=== PATIENT | male | born 1955 | race Caucasian/White ===

== ENCOUNTER 2017-12-09 20:24 | Emergency (ER) | payer MEDICAID, OTHER ==
[~2017-12-09] VITALS: Ht 175.3 cm; Wt 68.2 kg
[~2017-12-09 20:24] MED LIST: CITA10TA68 PO; OMEP20 PO; TRAZ-144 PO
[2017-12-09] MEDS ORDERED: MAGNESIUM SULFATE 2 GM, MVI, ADULT NO.1 WITH VIT K 10 ML, THIAMINE HCL 100 MG, FOLIC AC... IV ONE ×5 (20:45)
[2017-12-09 21:17] LABS: BASOPHILS % (AUTO) 0.4 % (0.0-2.0); EOSINOPHILS % (AUTO) 2.4 % (1.0-6.0); HEMATOCRIT 42.8 % (41-53); HEMOGLOBIN 14.4 g/dL (13.5-17.5); LYMPHOCYTES # (AUTO) 0.7 K/uL (1.0-4.8); LYMPHOCYTES % (AUTO) 10.6 % (22.0-44.0); MEAN CORPUSCULAR HEMOGLOBIN 30.8 pg (26.0-34.0); MEAN CORPUSCULAR HGB CONC 33.7 G/dL (31.0-37.0); MEAN CORPUSCULAR VOLUME 91 fL (80-100); MONOCYTES # (AUTO) 0.4 K/uL (0.1-1.0); MONOCYTES % (AUTO) 5.9 % (2.0-9.0); NEUTROPHILS # (AUTO) 5.2 K/uL (1.8-7.7); NEUTROPHILS % (AUTO) 80.7 % (40.0-70.0); PLATELET COUNT (AUTO) 145 K/uL (150-450); RED BLOOD CELL COUNT(AUTO) 4.69 MIL/uL (4.50-5.90); RED CELL DISTRIBUTION WIDTH 14.7 % (11.5-14.5)
[2017-12-09 21:22] LABS: ANION GAP 8 mmol/L (8-16); CARBON DIOXIDE 31 mmol/L (22-29); CHLORIDE 100 mmol/L (98-107); CREATININE 0.77 mg/dL (0.60-1.30); GLOMERULAR FILTR. RATE CALC > 60 mL/min (>60); GLUCOSE,RANDOM 168 mg/dL (70-110); POTASSIUM 3.8 mmol/L (3.5-5.1); SODIUM SERUM 139 mmol/L (136-145); UREA NITROGEN, BLOOD 12 mg/dL (7-18)
[2017-12-09 21:30] LABS: ALANINE AMINOTRANSFERASE 40 U/L (12-78); ALBUMIN 3.6 g/dL (3.4-5.0); ALKALINE PHOSPHATASE 98 U/L (46-116); ASPARTATE AMINOTRANSFERASE 77 U/L (15-37); BILIRUBIN,TOTAL 0.5 mg/dL (0.1-1.0); TOTAL PROTEIN, SERUM 7.2 g/dL (6.4-8.2)
[2017-12-09] MEDS ORDERED: LORazepam 2 MG TABLET PO ONE (21:30)
[2017-12-09 23:50] VITALS: BP 145/83
== END 2017-12-09 23:57 | disposition home or self-care (01) ==
LOC: EMS 20:26
DX: K70.30 Alcoholic cirrhosis of liver without ascites (principal); F10.239 Alcohol dependence with withdrawal, unspecified; F41.9 Anxiety disorder, unspecified; F17.210 Nicotine dependence, cigarettes, uncomplicated; Y90.0 Blood alcohol level of less than 20 mg/100 ml
CPT/HCPCS: 36415; 80053; 84484; 85025; 99284; 99406; G0480; J3411; J3475; J3490; J7030

== ENCOUNTER 2020-01-01 22:33 | Inpatient (IN) | payer MEDICARE, OTHER ==
[~2020-01-01] VITALS: Ht 182.9 cm; Wt 63.5 kg
[2020-01-01] MEDS ORDERED: DEXTROSE 5%-WATER 250 ML IV ONE (22:51)
[2020-01-01] MEDS ORDERED: DEXTROSE 50%-WATER 25 GM/50 ML SYRINGE IVP ONE ×2 (22:53→23:00)
[2020-01-01] MEDS ORDERED: SODIUM CHLORIDE 0.9% 1,000 ML IV ONE (23:00)
[2020-01-01 23:58] LABS: BASOPHILS % (AUTO) 0.5 % (0.0-2.0); EOSINOPHILS % (AUTO) 12.7 % (1.0-6.0); HEMATOCRIT 47.6 % (41-53); HEMOGLOBIN 14.7 g/dL (13.5-17.5); LYMPHOCYTES # (AUTO) 0.4 K/uL (1.0-4.8); LYMPHOCYTES % (AUTO) 7.5 % (22.0-44.0); MEAN CORPUSCULAR HGB CONC 30.8 G/dL (31.0-37.0); MEAN CORPUSCULAR VOLUME 94 fL (80-100); MONOCYTES # (AUTO) 0.6 K/uL (0.1-1.0); MONOCYTES % (AUTO) 9.9 % (2.0-9.0); NEUTROPHILS # (AUTO) 4.1 K/uL (1.8-7.7); NEUTROPHILS % (AUTO) 69.4 % (40.0-70.0); PLATELET COUNT (AUTO) 203 K/uL (150-450); RED BLOOD CELL COUNT(AUTO) 5.06 MIL/uL (4.50-5.90); RED CELL DISTRIBUTION WIDTH 14.9 % (11.5-14.5)
[2020-01-02] MEDS ORDERED: ZOLPIDEM TARTRATE 5 MG TABLET PO PRN
[2020-01-02] MEDS ORDERED: ACETAMINOPHEN 325 MG TABLET PO PRN
[2020-01-02] MEDS ORDERED: HYDROCODONE/ACETAMINOPHEN 5-325 MG TABLET PO PRN
[2020-01-02] MEDS ORDERED: MAGNESIUM HYDROXIDE SUSPENSION 30 ML UDCUP PO PRN
[2020-01-02] MEDS ORDERED: ONDANSETRON HCL 4 MG/2 ML VIAL IVP PRN
[2020-01-02] MEDS ORDERED: BISACODYL 10 MG RECTAL RECTAL SUPPOSITORY PR PRN
[2020-01-02] MEDS ORDERED: MORPHINE SULFATE 2 MG/ML SYRINGE IVP PRN
[2020-01-02 00:06] LABS: ANION GAP 0 mmol/L (8-16); CARBON DIOXIDE 35 mmol/L (22-29); CHLORIDE 102 mmol/L (98-107); GLOMERULAR FILTR. RATE CALC > 60 mL/min (>60); GLUCOSE,RANDOM 162 mg/dL (70-110); POTASSIUM 4.7 mmol/L (3.5-5.1); SODIUM SERUM 137 mmol/L (136-145); UREA NITROGEN, BLOOD 19 mg/dL (7-18)
[2020-01-02 00:09] LABS: INR 1.3 (0.9-1.1); PROTHROMBIN TIME 12.8 SEC (9.4-11.6)
[2020-01-02 00:12] LABS: ALANINE AMINOTRANSFERASE 57 U/L (12-78); ALBUMIN 2.9 g/dL (3.4-5.0); ALKALINE PHOSPHATASE 104 U/L (46-116); ASPARTATE AMINOTRANSFERASE 73 U/L (15-37); BILIRUBIN,TOTAL 0.4 mg/dL (0.1-1.0); TOTAL PROTEIN, SERUM 6.6 g/dL (6.4-8.2)
[2020-01-02 00:14] LABS: LACTIC ACID 1.1 mmol/L (0.4-2.0)
[2020-01-02 00:14] LABS: APPEARANCE,URINE CLEAR (CLEAR); BILIRUBIN,URINE PRELIM. POSITIVE (NEGATIVE); GLUCOSE, URINE (UA) NEGATIVE (NEGATIVE); KETONES,URINE NEGATIVE (NEGATIVE); LEUKOCYTE ESTERASE ,URINE NEGATIVE (NEGATIVE); NITRATE,URINE NEGATIVE (NEGATIVE); OCCULT BLOOD,URINE NEGATIVE (NEGATIVE); PH,URINE 5.5 (5.0-8.0); PROTEIN,URINE NEGATIVE (NEGATIVE)
[2020-01-02 00:16] LABS: AMMONIA 39 umol/L (11-32); TROPONIN I < 0.02 ng/mL (0.00-0.05)
[2020-01-02 00:20] LABS: B-TYPE NATRIURETIC PEPTIDE 378 pg/mL (0-100)
[2020-01-02 00:20] LABS: AMPHET/METH SCREEN,URINE POSITIVE (NEGATIVE); BARBITURATE SCREEN, URINE NEGATIVE (NEGATIVE); BENZODIAZEPINES SCREEN,URINE NEGATIVE (NEGATIVE); CANNABINOID SCREEN,URINE NEGATIVE (NEGATIVE); COCAINE SCREEN,URINE NEGATIVE (NEGATIVE); METHADONE SCREEN, URINE NEGATIVE (NEGATIVE); OPIATE SCREEN,URINE NEGATIVE (NEGATIVE); PHENCYCLIDINE SCREEN,URINE NEGATIVE (NEGATIVE)
[2020-01-02 00:22] LABS: ACETONE,BLOOD NEGATIVE (NEGATIVE)
[2020-01-02 00:26] LABS: BACTERIA,URINE None Seen /HPF (None Seen); RBC,URINE 0-2 /HPF (0-2); SQUAMOUS EPITHELIAL CELL,UR Few /LPF (None Seen)
[2020-01-02] MEDS ORDERED: LORazepam 2 MG/ML VIAL ONE (01:18)
[2020-01-02] MEDS ORDERED: LORazepam 2 MG/ML VIAL IVP ONE (01:30)
[2020-01-02] MEDS ORDERED: DEXTROSE 5%-0.45% SODIUM CHL 1,000 ML IV ONE (01:45)
[2020-01-02 01:51] LABS: GLUCOSE,POINT OF CARE 121 MG/DL (70-110)
[2020-01-02 01:51] LABS: GLUCOSE,POINT OF CARE 158 MG/DL (70-110)
[2020-01-02] MEDS ORDERED: AZITHROMYCIN 500 MG/NS 250 ML IV ONE (03:45)
[2020-01-02] MEDS: CefTRIAXone 1 GM/DEXTROSE 50 ML IV ONE ×2 (04:15→04:51)
[2020-01-02] MEDS ORDERED: VANCOMYCIN HCL 1 GM/D5% WATER 200 ML IV ONE (06:00)
[2020-01-02] MEDS: SODIUM CHLORIDE 0.9% 1,000 ML IV ONE ×2 (06:09→07:15)
[2020-01-02 06:21] LABS: GLUCOSE,POINT OF CARE 144 MG/DL (70-110)
[2020-01-02] MEDS ORDERED: SODIUM CHLORIDE 0.9% 500 ML IV ONE (07:15)
[2020-01-02] MEDS: DOPamine HCL 400 MG/D5%-WATER 250 ML IV PRN ×2 (07:34→22:12)
[2020-01-02 07:57] LABS: GLUCOSE,POINT OF CARE 204 MG/DL (70-110)
[2020-01-02] MEDS: PANTOPRAZOLE SODIUM 40 MG DR TABLET PO SCH (09:00)
[2020-01-02] MEDS: DOCUSATE SODIUM 100 MG CAPSULE PO SCH ×2 (09:00→22:51)
[2020-01-02 09:12] LABS: BASOPHILS % (AUTO) 0.5 % (0.0-2.0); EOSINOPHILS % (AUTO) 8.7 % (1.0-6.0); HEMATOCRIT 47.1 % (41-53); HEMOGLOBIN 14.4 g/dL (13.5-17.5); LYMPHOCYTES # (AUTO) 0.9 K/uL (1.0-4.8); LYMPHOCYTES % (AUTO) 10.5 % (22.0-44.0); MEAN CORPUSCULAR HEMOGLOBIN 29.3 pg (26.0-34.0); MEAN CORPUSCULAR HGB CONC 30.5 G/dL (31.0-37.0); MEAN CORPUSCULAR VOLUME 96 fL (80-100); MONOCYTES % (AUTO) 12.1 % (2.0-9.0); NEUTROPHILS # (AUTO) 5.6 K/uL (1.8-7.7); NEUTROPHILS % (AUTO) 68.2 % (40.0-70.0); PLATELET COUNT (AUTO) 196 K/uL (150-450); RED BLOOD CELL COUNT(AUTO) 4.91 MIL/uL (4.50-5.90); RED CELL DISTRIBUTION WIDTH 15.3 % (11.5-14.5)
[2020-01-02 09:16] LABS: ANION GAP -1 mmol/L (8-16); CALCIUM, TOTAL 8.2 mg/dL (8.8-10.5); CARBON DIOXIDE 37 mmol/L (22-29); CHLORIDE 102 mmol/L (98-107); CREATININE 0.74 mg/dL (0.60-1.30); GLOMERULAR FILTR. RATE CALC > 60 mL/min (>60); GLUCOSE,RANDOM 225 mg/dL (70-110); POTASSIUM 4.4 mmol/L (3.5-5.1); SODIUM SERUM 138 mmol/L (136-145); UREA NITROGEN, BLOOD 17 mg/dL (7-18)
[2020-01-02 09:31] LABS: THYROID STIMULATING HORMONE 2.39 uIU/mL (0.36-3.74)
[2020-01-02] MEDS ORDERED: NALOXONE HCL 0.4 MG/ML VIAL IM ONE (10:45)
[2020-01-02 11:24] LABS: CREATINE KINASE, TOTAL ONLY 389 U/L (39-308)
[2020-01-02 12:03] LABS: GLUCOSE,POINT OF CARE 93 MG/DL (70-110)
[2020-01-02] MEDS ORDERED: DEXTROSE 50%-WATER 25 GM/50 ML SYRINGE IVP STA (13:19)
[2020-01-02] MEDS ORDERED: DEXTROSE 50%-WATER 25 GM/50 ML SYRINGE IVP ONE (13:29)
[2020-01-02] MEDS ORDERED: SODIUM CHLORIDE 0.45% 1,000 ML IV SCH (13:30)
[2020-01-02 13:36] LABS: GLUCOSE,POINT OF CARE 56 MG/DL (70-110)
[2020-01-02] MEDS: SODIUM CHLORIDE 77 MEQ in DEXTROSE 10%-WATER 1,000 ML IV SCH (14:33)
[2020-01-02 14:42] LABS: GLUCOSE,POINT OF CARE 94 MG/DL (70-110)
[2020-01-02] MEDS ORDERED: PROPOFOL 1000 MG/ISO-OSM 100 ML IV ONE (16:31)
[2020-01-02] MEDS ORDERED: RAPID SEQUENCE KIT [RSI] 1 EACH KIT ONE (16:31)
[2020-01-02] MEDS ORDERED: ROCURONIUM BROMIDE 10 MG/ML 5 ML VIAL ONE (16:32)
[2020-01-02] MEDS: PROPOFOL 1000 MG/ISO-OSM 100 ML IV PRN ×2 (17:12→22:12)
[2020-01-02 17:45] LABS: ABG A-A DIFF O2 483.4 mmHg (10-20.0); ABG BASE EXCESS 3.1 mmol/L (-2.0-3.0); ABG CARBOXYHEMOGLOBIN 1.9 % (0.0-1.5); ABG HCO3 25.1 mmol/L (22.0-26.0); ABG METHEMOGLOBIN 0.1 % (0.0-1.5); ABG OXYGEN CONTENT 20.3 mL/dL (15.0-23.0); ABG OXYGEN SATURATION 99.5 % (95.0-98.0); ABG OXYHEMOGLOBIN 97.5 % (94.0-100.0); ABG PH 7.228 (7.35-7.450); ABG TOTAL HEMOGLOBIN 14.6 G/dL (12.0-18.0); PO2, ARTERIAL BG 156.9 mmHg (79.0-87.0); SOURCE, BLOOD GAS ARTERIAL; TEMPERATURE, FAHRENHEIT, BG 96.9 FAHREN (96.0-98.6)
[2020-01-02 18:13] LABS: ABG PCO2 75 mmHg (35-45); SITE, BLOOD GAS AC
[2020-01-02 18:14] LABS: O2 DEVICE,BLOOD GAS VENTILATOR (ROOM AIR); PEEP,BG 5 cm H2O; SPONTANEOUS VT, BG 556 ml; VT, ABG 500 ml
[2020-01-02 18:42] LABS: GLUCOSE,POINT OF CARE 75 MG/DL (70-110)
[2020-01-02 21:30] VITALS: BP 80/55
[2020-01-02] MEDS ORDERED: SODIUM CHLORIDE 0.9% 1,000 ML ONE (22:50)
[2020-01-03] VITALS: BP 111/74
[2020-01-03 01:40] LABS: GLUCOSE,POINT OF CARE 74 MG/DL (70-110)
[2020-01-03] MEDS: PROPOFOL 1000 MG/ISO-OSM 100 ML IV PRN ×2 (01:50→21:54)
[2020-01-03 04:00] VITALS: BP 115/66
[2020-01-03 06:19] LABS: BASOPHILS % (AUTO) 0.1 % (0.0-2.0); EOSINOPHILS % (AUTO) 3.3 % (1.0-6.0); HEMATOCRIT 46.4 % (41-53); HEMOGLOBIN 14.5 g/dL (13.5-17.5); LYMPHOCYTES # (AUTO) 0.4 K/uL (1.0-4.8); LYMPHOCYTES % (AUTO) 3.2 % (22.0-44.0); MEAN CORPUSCULAR HEMOGLOBIN 29.2 pg (26.0-34.0); MEAN CORPUSCULAR HGB CONC 31.4 G/dL (31.0-37.0); MEAN CORPUSCULAR VOLUME 93 fL (80-100); MONOCYTES # (AUTO) 0.7 K/uL (0.1-1.0); MONOCYTES % (AUTO) 5.7 % (2.0-9.0); NEUTROPHILS # (AUTO) 11.6 K/uL (1.8-7.7); RED BLOOD CELL COUNT(AUTO) 4.97 MIL/uL (4.50-5.90); RED CELL DISTRIBUTION WIDTH 14.9 % (11.5-14.5)
[2020-01-03 06:50] LABS: NEUTROPHILS % (AUTO) 87.7 % (40.0-70.0); PLATELET COUNT (AUTO) 190 K/uL (150-450)
[2020-01-03 06:55] LABS: ANION GAP 3 mmol/L (8-16); CARBON DIOXIDE 34 mmol/L (22-29); CHLORIDE 103 mmol/L (98-107); CREATINE KINASE, TOTAL ONLY 132 U/L (39-308); CREATININE 0.72 mg/dL (0.60-1.30); GLOMERULAR FILTR. RATE CALC > 60 mL/min (>60); GLUCOSE,RANDOM 66 mg/dL (70-110); PHOSPHORUS 1.9 mg/dL (2.5-4.9); SODIUM SERUM 140 mmol/L (136-145); UREA NITROGEN, BLOOD 14 mg/dL (7-18)
[2020-01-03 07:11] LABS: B-TYPE NATRIURETIC PEPTIDE 156 pg/mL (0-100)
[2020-01-03 08:00] VITALS: BP 117/69
[2020-01-03 08:10] LABS: GLUCOSE,POINT OF CARE 69 MG/DL (70-110)
[2020-01-03 08:10] LABS: GLUCOSE,POINT OF CARE 95 MG/DL (70-110)
[2020-01-03] MEDS ORDERED: SODIUM PHOS,M-BASIC-D-BASIC 10 MMOL in DEXTROSE 5%-WATER 100 ML IV ONE (09:45)
[2020-01-03] MEDS: PANTOPRAZOLE SODIUM 40 MG DR TABLET PO SCH (09:50)
[2020-01-03] MEDS: DOCUSATE SODIUM 100 MG CAPSULE PO SCH ×2 (09:51→21:54)
[2020-01-03 10:48] LABS: ABG A-A DIFF O2 115.1 mmHg (10-20.0); ABG BASE EXCESS 5.6 mmol/L (-2.0-3.0); ABG CARBOXYHEMOGLOBIN 1.1 % (0.0-1.5); ABG HCO3 28.7 mmol/L (22.0-26.0); ABG METHEMOGLOBIN 0.3 % (0.0-1.5); ABG OXYGEN CONTENT 20.3 mL/dL (15.0-23.0); ABG OXYHEMOGLOBIN 95.6 % (94.0-100.0); ABG PCO2 46 mmHg (35-45); ABG PH 7.429 (7.35-7.450); ABG TOTAL HEMOGLOBIN 15.1 G/dL (12.0-18.0); PO2, ARTERIAL BG 80.7 mmHg (79.0-87.0); SOURCE, BLOOD GAS ARTERIAL; TEMPERATURE, FAHRENHEIT, BG 98.6 FAHREN (96.0-98.6)
[2020-01-03 10:49] LABS: O2 DEVICE,BLOOD GAS VENTILATOR (ROOM AIR); SITE, BLOOD GAS RT RADIAL; VT, ABG 500 ml
[2020-01-03 10:50] LABS: PEEP,BG 5 cm H2O
[2020-01-03 12:00] VITALS: BP 114/71
[2020-01-03] MEDS ORDERED: MVI, ADULT NO.1 WITH VIT K 10 ML in DEXTROSE 5%-0.9% SODIUM CHL 1,000 ML IV ONE ×2 (14:15)
[2020-01-03] MEDS: SODIUM CHLORIDE 77 MEQ in DEXTROSE 10%-WATER 1,000 ML IV SCH (15:43)
[2020-01-03 16:00] VITALS: BP 109/72
[2020-01-03] MEDS: NOREPINEPHRINE 4 MG/D5%-WATER 250 ML IV PRN (17:58)
[2020-01-03 18:57] LABS: GLUCOSE,POINT OF CARE 77 MG/DL (70-110)
[2020-01-03 18:57] LABS: GLUCOSE,POINT OF CARE 108 MG/DL (70-110)
[2020-01-03 20:00] VITALS: BP 96/62
[2020-01-03 22:09] LABS: CREATININE,URINE RANDOM 84.4 mg/dL (30.0-125.0)
[2020-01-04] VITALS: BP 107/64
[2020-01-04] MEDS: NOREPINEPHRINE 4 MG/D5%-WATER 250 ML IV PRN ×3 (01:18→20:43)
[2020-01-04] MEDS ORDERED: PERMETHRIN 5% 60 GM CREAM TP ONE (02:45)
[2020-01-04] MEDS: PROPOFOL 1000 MG/ISO-OSM 100 ML IV PRN ×2 (03:12→10:41)
[2020-01-04 04:00] VITALS: BP 105/70
[2020-01-04 06:24] LABS: BASOPHILS % (AUTO) 0.1 % (0.0-2.0); EOSINOPHILS % (AUTO) 2.8 % (1.0-6.0); HEMATOCRIT 44.4 % (41-53); HEMOGLOBIN 14.2 g/dL (13.5-17.5); LYMPHOCYTES # (AUTO) 0.4 K/uL (1.0-4.8); LYMPHOCYTES % (AUTO) 3.2 % (22.0-44.0); MEAN CORPUSCULAR HEMOGLOBIN 29.1 pg (26.0-34.0); MEAN CORPUSCULAR VOLUME 91 fL (80-100); MONOCYTES # (AUTO) 0.9 K/uL (0.1-1.0); MONOCYTES % (AUTO) 6.5 % (2.0-9.0); NEUTROPHILS # (AUTO) 12.2 K/uL (1.8-7.7); RED BLOOD CELL COUNT(AUTO) 4.88 MIL/uL (4.50-5.90)
[2020-01-04 06:37] LABS: ANION GAP 3 mmol/L (8-16); CALCIUM, TOTAL 7.6 mg/dL (8.8-10.5); CARBON DIOXIDE 32 mmol/L (22-29); CHLORIDE 104 mmol/L (98-107); CREATININE 0.76 mg/dL (0.60-1.30); GLOMERULAR FILTR. RATE CALC > 60 mL/min (>60); GLUCOSE,RANDOM 131 mg/dL (70-110); PHOSPHORUS 2.7 mg/dL (2.5-4.9); POTASSIUM 3.6 mmol/L (3.5-5.1); SODIUM SERUM 139 mmol/L (136-145); UREA NITROGEN, BLOOD 10 mg/dL (7-18)
[2020-01-04 06:45] LABS: NEUTROPHILS % (AUTO) 87.4 % (40.0-70.0)
[2020-01-04 07:07] LABS: PLATELET COUNT (AUTO) 154 K/uL (150-450)
[2020-01-04 08:00] VITALS: BP 130/79
[2020-01-04 08:46] LABS: GLUCOSE,POINT OF CARE 138 MG/DL (70-110)
[2020-01-04] MEDS: DOCUSATE SODIUM 100 MG CAPSULE PO SCH ×2 (08:52→20:25)
[2020-01-04] MEDS: PANTOPRAZOLE SODIUM 40 MG DR TABLET PO SCH (08:52)
[2020-01-04 09:00] LABS: ABG METHEMOGLOBIN 0.3 % (0.0-1.5); SOURCE, BLOOD GAS ARTERIAL; TEMPERATURE, FAHRENHEIT, BG 98.6 FAHREN (96.0-98.6)
[2020-01-04 09:05] LABS: ABG A-A DIFF O2 118.9 mmHg (10-20.0); ABG BASE EXCESS 4.4 mmol/L (-2.0-3.0); ABG CARBOXYHEMOGLOBIN 0.8 % (0.0-1.5); ABG HCO3 28.2 mmol/L (22.0-26.0); ABG OXYGEN CONTENT 18.7 mL/dL (15.0-23.0); ABG OXYGEN SATURATION 97.1 % (95.0-98.0); ABG PCO2 39 mmHg (35-45); ABG PH 7.474 (7.35-7.450); ABG TOTAL HEMOGLOBIN 13.8 G/dL (12.0-18.0); PO2, ARTERIAL BG 85.3 mmHg (79.0-87.0)
[2020-01-04 09:07] LABS: SITE, BLOOD GAS RT RADIAL
[2020-01-04 09:08] LABS: O2 DEVICE,BLOOD GAS VENTILATOR (ROOM AIR); PEEP,BG 5 cm H2O; VT, ABG 500 ml
[2020-01-04] MEDS ORDERED: SODIUM CHLORIDE 0.9% 1,000 ML ONE (10:43)
[2020-01-04 11:58] LABS: GLUCOSE,POINT OF CARE 116 MG/DL (70-110)
[2020-01-04 12:00] VITALS: BP 97/64
[2020-01-04] MEDS ORDERED: MAGNESIUM SULFATE 2 GM, MVI, ADULT NO.1 WITH VIT K 10 ML, THIAMINE HCL 100 MG, FOLIC AC... IV SCH ×5 (15:15)
[2020-01-04] MEDS ORDERED: MVI, ADULT NO.1 WITH VIT K 10 ML in DEXTROSE 5%-0.9% SODIUM CHL 1,000 ML IV ONE ×2 (15:45)
[2020-01-04 16:00] VITALS: BP 123/76
[2020-01-04 17:40] LABS: GLUCOSE,POINT OF CARE 98 MG/DL (70-110)
[2020-01-04 20:00] VITALS: BP 152/88
[2020-01-05] VITALS: BP 119/71
[2020-01-05] MEDS: PROPOFOL 1000 MG/ISO-OSM 100 ML IV PRN (02:30)
[2020-01-05 04:00] VITALS: BP 118/70
[2020-01-05 06:01] LABS: ANION GAP 2 mmol/L (8-16); CALCIUM, TOTAL 7.8 mg/dL (8.8-10.5); CARBON DIOXIDE 33 mmol/L (22-29); CHLORIDE 108 mmol/L (98-107); CREATININE 0.69 mg/dL (0.60-1.30); GLOMERULAR FILTR. RATE CALC > 60 mL/min (>60); GLUCOSE,RANDOM 90 mg/dL (70-110); POTASSIUM 3.1 mmol/L (3.5-5.1); SODIUM SERUM 143 mmol/L (136-145); UREA NITROGEN, BLOOD 7 mg/dL (7-18)
[2020-01-05 06:08] LABS: BASOPHILS % (AUTO) 0.2 % (0.0-2.0); EOSINOPHILS % (AUTO) 11.8 % (1.0-6.0); HEMATOCRIT 40.7 % (41-53); HEMOGLOBIN 12.9 g/dL (13.5-17.5); LYMPHOCYTES # (AUTO) 0.7 K/uL (1.0-4.8); LYMPHOCYTES % (AUTO) 9.1 % (22.0-44.0); MEAN CORPUSCULAR HEMOGLOBIN 28.8 pg (26.0-34.0); MEAN CORPUSCULAR HGB CONC 31.8 G/dL (31.0-37.0); MEAN CORPUSCULAR VOLUME 90 fL (80-100); MONOCYTES # (AUTO) 0.8 K/uL (0.1-1.0); MONOCYTES % (AUTO) 10.6 % (2.0-9.0); NEUTROPHILS # (AUTO) 5.4 K/uL (1.8-7.7); NEUTROPHILS % (AUTO) 68.3 % (40.0-70.0); PLATELET COUNT (AUTO) 127 K/uL (150-450); RED BLOOD CELL COUNT(AUTO) 4.49 MIL/uL (4.50-5.90); RED CELL DISTRIBUTION WIDTH 14.9 % (11.5-14.5)
[2020-01-05 07:04] LABS: GLUCOSE,POINT OF CARE 110 MG/DL (70-110)
[2020-01-05 07:04] LABS: GLUCOSE,POINT OF CARE 86 MG/DL (70-110)
[2020-01-05 07:27] LABS: PLATELET MORPHOLOGY COMMENT GIANT PLTS PRESENT
[2020-01-05] MEDS ORDERED: POTASSIUM CHLORIDE 20 MEQ ER TABLET PO ONE (07:30)
[2020-01-05] MEDS: POTASSIUM CHL 10 MEQ/WATER 50 ML IV SCH ×2 (07:53→09:30)
[2020-01-05 08:00] VITALS: BP 123/81
[2020-01-05 08:06] LABS: PHOSPHORUS 2.9 mg/dL (2.5-4.9)
[2020-01-05 08:25] LABS: GLUCOSE,POINT OF CARE 93 MG/DL (70-110)
[2020-01-05] MEDS: DOCUSATE SODIUM 100 MG CAPSULE PO SCH ×2 (09:03→21:57)
[2020-01-05] MEDS: PANTOPRAZOLE SODIUM 40 MG DR TABLET PO SCH (09:04)
[2020-01-05] MEDS: SODIUM CHLORIDE 77 MEQ in DEXTROSE 10%-WATER 1,000 ML IV SCH ×2 (09:06→14:10)
[2020-01-05 11:34] LABS: ABG A-A DIFF O2 75.9 mmHg (10-20.0); ABG BASE EXCESS 4.1 mmol/L (-2.0-3.0); ABG CARBOXYHEMOGLOBIN 0.7 % (0.0-1.5); ABG HCO3 26.8 mmol/L (22.0-26.0); ABG METHEMOGLOBIN 0.3 % (0.0-1.5); ABG OXYGEN CONTENT 18.9 mL/dL (15.0-23.0); ABG OXYGEN SATURATION 97.6 % (95.0-98.0); ABG OXYHEMOGLOBIN 96.6 % (94.0-100.0); ABG PCO2 60 mmHg (35-45); ABG TOTAL HEMOGLOBIN 13.8 G/dL (12.0-18.0); O2 DEVICE,BLOOD GAS VENTILATOR (ROOM AIR); PO2, ARTERIAL BG 103.9 mmHg (79.0-87.0); SITE, BLOOD GAS RT RADIAL; SOURCE, BLOOD GAS ARTERIAL; TEMPERATURE, FAHRENHEIT, BG 98.6 FAHREN (96.0-98.6); VENT MODE, BG SPONTANEOUS (ROOM AIR)
[2020-01-05 11:35] LABS: CPAP, BG 0 cm H2O; PEEP,BG 0 cm H2O; PRESSURE SUPPORT, BG 8 cm H2O; SPONTANEOUS VT, BG 485 ml
[2020-01-05 12:00] VITALS: BP 127/70
[2020-01-05 13:33] LABS: GLUCOSE,POINT OF CARE 71 MG/DL (70-110)
[2020-01-05] MEDS ORDERED: MAGNESIUM SULFATE 3 GM in DEXTROSE 5%-WATER 100 ML IV ONE (14:00)
[2020-01-05 16:00] VITALS: BP 106/56
[2020-01-05] MEDS ORDERED: MVI, ADULT NO.1 WITH VIT K 10 ML in DEXTROSE 5%-0.9% SODIUM CHL 1,000 ML IV ONE ×2 (18:00)
[2020-01-05] MEDS ORDERED: DEXTROSE 50%-WATER 25 GM/50 ML SYRINGE IVP ONE (18:09)
[2020-01-05 20:00] VITALS: BP 102/66
[2020-01-05 20:51] LABS: GLUCOSE,POINT OF CARE 69 MG/DL (70-110)
[2020-01-05 20:51] LABS: GLUCOSE,POINT OF CARE 174 MG/DL (70-110)
[2020-01-05] MEDS ORDERED: SODIUM CHLORIDE 0.9% 250 ML IV ONE (21:01)
[2020-01-05] MEDS: PIPERACILLIN/TAZO 3.375 GM/D5W 50 ML IV SCH (21:05)
[2020-01-06] VITALS (7 sets, daily range): BP systolic 104–144; BP diastolic 63–73
[2020-01-06] MEDS: PROPOFOL 1000 MG/ISO-OSM 100 ML IV PRN ×2 (01:20→15:02)
[2020-01-06] MEDS: PIPERACILLIN/TAZO 3.375 GM/D5W 50 ML IV SCH ×4 (03:00→20:18)
[2020-01-06 05:26] LABS: GLUCOSE,POINT OF CARE 81 MG/DL (70-110)
[2020-01-06 05:26] LABS: GLUCOSE,POINT OF CARE 74 MG/DL (70-110)
[2020-01-06 05:52] LABS: BASOPHILS % (AUTO) 0.6 % (0.0-2.0); HEMATOCRIT 41.6 % (41-53); HEMOGLOBIN 13.3 g/dL (13.5-17.5); LYMPHOCYTES # (AUTO) 0.8 K/uL (1.0-4.8); LYMPHOCYTES % (AUTO) 12.5 % (22.0-44.0); MEAN CORPUSCULAR HEMOGLOBIN 29.1 pg (26.0-34.0); MEAN CORPUSCULAR HGB CONC 32.1 G/dL (31.0-37.0); MEAN CORPUSCULAR VOLUME 91 fL (80-100); MONOCYTES # (AUTO) 0.7 K/uL (0.1-1.0); NEUTROPHILS % (AUTO) 58.4 % (40.0-70.0); PLATELET COUNT (AUTO) 114 K/uL (150-450); RED BLOOD CELL COUNT(AUTO) 4.59 MIL/uL (4.50-5.90); RED CELL DISTRIBUTION WIDTH 14.5 % (11.5-14.5)
[2020-01-06 05:54] LABS: EOSINOPHILS % (AUTO) 18.5 % (1.0-6.0)
[2020-01-06 06:12] LABS: ANION GAP 5 mmol/L (8-16); CALCIUM, TOTAL 7.9 mg/dL (8.8-10.5); CARBON DIOXIDE 30 mmol/L (22-29); CHLORIDE 108 mmol/L (98-107); CREATININE 0.85 mg/dL (0.60-1.30); GLOMERULAR FILTR. RATE CALC > 60 mL/min (>60); GLUCOSE,RANDOM 75 mg/dL (70-110); PHOSPHORUS 2.9 mg/dL (2.5-4.9); POTASSIUM 3.4 mmol/L (3.5-5.1); SODIUM SERUM 143 mmol/L (136-145); UREA NITROGEN, BLOOD 9 mg/dL (7-18)
[2020-01-06 07:34] LABS: PLATELET MORPHOLOGY COMMENT GIANT PLTS PRESENT
[2020-01-06] MEDS ORDERED: DEXMEDETOMIDINE HCL 200 MCG in SODIUM CHLORIDE 0.9% 48 ML IV PRN ×2 (07:39→08:00)
[2020-01-06 07:57] LABS: GLUCOSE,POINT OF CARE 79 MG/DL (70-110)
[2020-01-06] MEDS: DOCUSATE SODIUM 100 MG CAPSULE PO SCH ×2 (08:40→20:18)
[2020-01-06] MEDS: PANTOPRAZOLE SODIUM 40 MG DR TABLET PO SCH (08:41)
[2020-01-06 09:17] LABS: ABG A-A DIFF O2 137.2 mmHg (10-20.0); ABG BASE EXCESS 2.1 mmol/L (-2.0-3.0); ABG CARBOXYHEMOGLOBIN 0.9 % (0.0-1.5); ABG HCO3 26.8 mmol/L (22.0-26.0); ABG METHEMOGLOBIN 0.3 % (0.0-1.5); ABG OXYGEN CONTENT 18.3 mL/dL (15.0-23.0); ABG OXYHEMOGLOBIN 94.8 % (94.0-100.0); ABG PCO2 31 mmHg (35-45); ABG PH 7.519 (7.35-7.450); ABG TOTAL HEMOGLOBIN 13.7 G/dL (12.0-18.0); PO2, ARTERIAL BG 76.1 mmHg (79.0-87.0); SOURCE, BLOOD GAS ARTERIAL; TEMPERATURE, FAHRENHEIT, BG 98.3 FAHREN (96.0-98.6)
[2020-01-06 09:19] LABS: O2 DEVICE,BLOOD GAS VENTILATOR (ROOM AIR); PEEP,BG 5 cm H2O; SITE, BLOOD GAS RT RADIAL; SPONTANEOUS VT, BG 483 ml; VT, ABG 500 ml
[2020-01-06] MEDS ORDERED: MAGNESIUM SULFATE 2 GM in DEXTROSE 5%-WATER 50 ML IV ONE (10:00)
[2020-01-06] MEDS ORDERED: MAGNESIUM SULFATE 2 GM/WATER 50 ML IV ONE (10:15)
[2020-01-06] MEDS: POTASSIUM CHL 10 MEQ/WATER 50 ML IV SCH ×2 (10:50→12:50)
[2020-01-06 11:47] LABS: GLUCOSE,POINT OF CARE 92 MG/DL (70-110)
[2020-01-06] MEDS ORDERED: POTASSIUM CHL 10 MEQ/WATER 50 ML IV PRN (12:15)
[2020-01-06] MEDS ORDERED: POTASSIUM CHLORIDE 20 MEQ ER TABLET PO PRN (12:15)
[2020-01-06] MEDS ORDERED: LORazepam 2 MG/ML VIAL IVP PRN (13:30)
[2020-01-06] MEDS ORDERED: SCOPOLAMINE HYDROBROMIDE 1 MG/72 HOUR PATCH TD SCH (14:00)
[2020-01-06] MEDS ORDERED: MVI, ADULT NO.1 WITH VIT K 10 ML in DEXTROSE 5%-0.9% SODIUM CHL 1,000 ML IV ONE ×2 (14:30)
[2020-01-06] MEDS: SODIUM CHLORIDE 77 MEQ in DEXTROSE 10%-WATER 1,000 ML IV SCH (15:00)
[2020-01-06 19:16] LABS: GLUCOSE,POINT OF CARE 103 MG/DL (70-110)
[2020-01-07] VITALS (11 sets, daily range): BP systolic 93–130; BP diastolic 35–80
[2020-01-07] MEDS ORDERED: SODIUM CHLORIDE 0.9% 250 ML IV ONE (01:12)
[2020-01-07] MEDS: PIPERACILLIN/TAZO 3.375 GM/D5W 50 ML IV SCH ×4 (01:17→20:02)
[2020-01-07] MEDS: PROPOFOL 1000 MG/ISO-OSM 100 ML IV PRN (01:17)
[2020-01-07 05:06] LABS: GLUCOSE,POINT OF CARE 79 MG/DL (70-110)
[2020-01-07 05:24] LABS: GLUCOSE,POINT OF CARE 99 MG/DL (70-110)
[2020-01-07 06:15] LABS: ANION GAP 4 mmol/L (8-16); CALCIUM, TOTAL 7.6 mg/dL (8.8-10.5); CARBON DIOXIDE 28 mmol/L (22-29); CHLORIDE 108 mmol/L (98-107); CREATININE 0.85 mg/dL (0.60-1.30); GLOMERULAR FILTR. RATE CALC > 60 mL/min (>60); GLUCOSE,RANDOM 118 mg/dL (70-110); PHOSPHORUS 3.9 mg/dL (2.5-4.9); POTASSIUM 3.6 mmol/L (3.5-5.1); SODIUM SERUM 140 mmol/L (136-145); UREA NITROGEN, BLOOD 10 mg/dL (7-18)
[2020-01-07] MEDS: DOCUSATE SODIUM 100 MG CAPSULE PO SCH ×2 (08:43→20:02)
[2020-01-07] MEDS: PANTOPRAZOLE SODIUM 40 MG DR TABLET PO SCH (08:43)
[2020-01-07 11:58] LABS: ABG A-A DIFF O2 130.4 mmHg (10-20.0); ABG BASE EXCESS 2.3 mmol/L (-2.0-3.0); ABG CARBOXYHEMOGLOBIN 0.9 % (0.0-1.5); ABG HCO3 25.6 mmol/L (22.0-26.0); ABG METHEMOGLOBIN 0.3 % (0.0-1.5); ABG OXYGEN CONTENT 17.7 mL/dL (15.0-23.0); ABG OXYGEN SATURATION 93.4 % (95.0-98.0); ABG OXYHEMOGLOBIN 92.3 % (94.0-100.0); ABG PCO2 49 mmHg (35-45); ABG PH 7.369 (7.35-7.450); ABG TOTAL HEMOGLOBIN 13.6 G/dL (12.0-18.0); O2 DEVICE,BLOOD GAS VENTILATOR (ROOM AIR); PEEP,BG 5 cm H2O; PO2, ARTERIAL BG 64.1 mmHg (79.0-87.0); SITE, BLOOD GAS LFT RADIAL; SOURCE, BLOOD GAS ARTERIAL; TEMPERATURE, FAHRENHEIT, BG 95.5 FAHREN (96.0-98.6); VT, ABG 500 ml
[2020-01-07] MEDS ORDERED: FUROSEMIDE 20 MG/2 ML VIAL IVP ONE (13:00)
[2020-01-07] MEDS: MVI, ADULT NO.1 WITH VIT K 10 ML in DEXTROSE 5%-0.9% SODIUM CHL 1,000 ML IV SCH ×2 (14:07)
[2020-01-07 20:38] LABS: MAGNESIUM 1.8 mg/dL (1.80-2.40); POTASSIUM 3.7 mmol/L (3.5-5.1)
[2020-01-08] VITALS (9 sets, daily range): BP systolic 103–143; BP diastolic 55–75
[2020-01-08 00:35] LABS: GLUCOSE,POINT OF CARE 86 MG/DL (70-110)
[2020-01-08 00:35] LABS: GLUCOSE,POINT OF CARE 91 MG/DL (70-110)
[2020-01-08 00:36] LABS: GLUCOSE,POINT OF CARE 101 MG/DL (70-110)
[2020-01-08] MEDS: PROPOFOL 1000 MG/ISO-OSM 100 ML IV PRN (01:02)
[2020-01-08] MEDS: PIPERACILLIN/TAZO 3.375 GM/D5W 50 ML IV SCH ×4 (01:02→20:27)
[2020-01-08 05:58] LABS: ANION GAP 2 mmol/L (8-16); CARBON DIOXIDE 34 mmol/L (22-29); CHLORIDE 107 mmol/L (98-107); CREATININE 0.85 mg/dL (0.60-1.30); GLOMERULAR FILTR. RATE CALC > 60 mL/min (>60); GLUCOSE,RANDOM 98 mg/dL (70-110); PHOSPHORUS 3.6 mg/dL (2.5-4.9); POTASSIUM 3.6 mmol/L (3.5-5.1); SODIUM SERUM 143 mmol/L (136-145); UREA NITROGEN, BLOOD 9 mg/dL (7-18)
[2020-01-08 06:07] LABS: GLUCOSE,POINT OF CARE 90 MG/DL (70-110)
[2020-01-08] MEDS: PANTOPRAZOLE SODIUM 40 MG DR TABLET PO SCH (08:52)
[2020-01-08] MEDS: DOCUSATE SODIUM 100 MG CAPSULE PO SCH ×2 (08:52→20:27)
[2020-01-08] MEDS: MVI, ADULT NO.1 WITH VIT K 10 ML in DEXTROSE 5%-0.9% SODIUM CHL 1,000 ML IV SCH ×2 (08:53)
[2020-01-08 10:39] LABS: ABG A-A DIFF O2 129.1 mmHg (10-20.0); ABG HCO3 19.3 mmol/L (22.0-26.0); ABG METHEMOGLOBIN 0.3 % (0.0-1.5); ABG OXYGEN CONTENT 18.4 mL/dL (15.0-23.0); ABG OXYGEN SATURATION 94.3 % (95.0-98.0); ABG OXYHEMOGLOBIN 93.1 % (94.0-100.0); ABG PCO2 37 mmHg (35-45); ABG PH 7.325 (7.35-7.450); SOURCE, BLOOD GAS ARTERIAL; TEMPERATURE, FAHRENHEIT, BG 98.6 FAHREN (96.0-98.6)
[2020-01-08 10:40] LABS: O2 DEVICE,BLOOD GAS VENTILATOR (ROOM AIR); SITE, BLOOD GAS RT RADIAL; VENT MODE, BG SPONTANEOUS (ROOM AIR)
[2020-01-08 10:41] LABS: CPAP, BG 0 cm H2O; PEEP,BG 0 cm H2O; PRESSURE SUPPORT, BG 8 cm H2O; SPONTANEOUS VT, BG 524 ml
[2020-01-08 14:56] LABS: GLUCOSE,POINT OF CARE 84 MG/DL (70-110)
[2020-01-08] MEDS ORDERED: DEXTROSE 50%-WATER 25 GM/50 ML SYRINGE IVP ONE ×2 (17:05→17:15)
[2020-01-08] MEDS ORDERED: DEXTROSE 5%-0.45% SODIUM CHL 1,000 ML IV ONE (18:00)
[2020-01-08 20:37] LABS: GLUCOSE,POINT OF CARE 116 MG/DL (70-110)
[2020-01-08 20:37] LABS: GLUCOSE,POINT OF CARE 64 MG/DL (70-110)
[2020-01-09] MEDS: PIPERACILLIN/TAZO 3.375 GM/D5W 50 ML IV SCH ×4 (02:13→20:22)
[2020-01-09 04:09] VITALS: BP 100/64
[2020-01-09] MEDS: MVI, ADULT NO.1 WITH VIT K 10 ML in DEXTROSE 5%-0.9% SODIUM CHL 1,000 ML IV SCH ×2 (06:07)
[2020-01-09 06:58] LABS: GLUCOMETER DEV NAME(LOC) 5N.2; GLUCOSE,POINT OF CARE 90 MG/DL (70-110)
[2020-01-09 06:58] LABS: GLUCOMETER DEV NAME(LOC) 5N.2; GLUCOSE,POINT OF CARE 80 MG/DL (70-110)
[2020-01-09 06:58] LABS: GLUCOMETER DEV NAME(LOC) 5N.2; GLUCOSE,POINT OF CARE 68 MG/DL (70-110)
[2020-01-09 07:36] LABS: ANION GAP 5 mmol/L (8-16); CALCIUM, TOTAL 8.3 mg/dL (8.8-10.5); CARBON DIOXIDE 33 mmol/L (22-29); CHLORIDE 108 mmol/L (98-107); CREATININE 0.72 mg/dL (0.60-1.30); GLOMERULAR FILTR. RATE CALC > 60 mL/min (>60); GLUCOSE,RANDOM 67 mg/dL (70-110); PHOSPHORUS 3.6 mg/dL (2.5-4.9); POTASSIUM 3.5 mmol/L (3.5-5.1); SODIUM SERUM 146 mmol/L (136-145); UREA NITROGEN, BLOOD 7 mg/dL (7-18)
[2020-01-09] MEDS: DOCUSATE SODIUM 100 MG CAPSULE PO SCH ×2 (08:04→20:20)
[2020-01-09] MEDS: PANTOPRAZOLE SODIUM 40 MG DR TABLET PO SCH (08:04)
[2020-01-09 08:05] VITALS: BP 98/56
[2020-01-09] MEDS ORDERED: MAGNESIUM SULFATE 2 GM in DEXTROSE 5%-WATER 50 ML IV ONE (08:45)
[2020-01-09 11:25] VITALS: BP 102/58
[2020-01-09] MEDS: POTASSIUM CHLORIDE 10 MEQ in DEXTROSE 5%-0.45% SODIUM CHL 1,000 ML IV SCH (12:02)
[2020-01-09 16:25] VITALS: BP 93/60
[2020-01-09 19:25] VITALS: BP 98/63
[2020-01-10 00:16] VITALS: BP 124/74
[2020-01-10] MEDS: PIPERACILLIN/TAZO 3.375 GM/D5W 50 ML IV SCH ×2 (02:41→08:38)
[2020-01-10 03:31] VITALS: BP 125/82
[2020-01-10] MEDS: POTASSIUM CHLORIDE 10 MEQ in DEXTROSE 5%-0.45% SODIUM CHL 1,000 ML IV SCH (05:17)
[2020-01-10 08:05] VITALS: BP_SYST 127; BP_SYST 27; BP_DIAS 70
[2020-01-10] MEDS: DOCUSATE SODIUM 100 MG CAPSULE PO SCH (08:39)
[2020-01-10] MEDS: PANTOPRAZOLE SODIUM 40 MG DR TABLET PO SCH (08:39)
[2020-01-10 11:32] VITALS: BP 147/94
[2020-01-10 12:03] LABS: ANION GAP 2 mmol/L (8-16); CARBON DIOXIDE 36 mmol/L (22-29); CHLORIDE 108 mmol/L (98-107); CREATININE 0.87 mg/dL (0.60-1.30); GLOMERULAR FILTR. RATE CALC > 60 mL/min (>60); GLUCOSE,RANDOM 109 mg/dL (70-110); PHOSPHORUS 2.8 mg/dL (2.5-4.9); POTASSIUM 3.4 mmol/L (3.5-5.1); SODIUM SERUM 146 mmol/L (136-145); UREA NITROGEN, BLOOD 9 mg/dL (7-18)
[2020-01-10] MEDS ORDERED: POTASSIUM CHLORIDE 10 MEQ ER TABLET PO ONE (13:00)
[2020-01-10] MEDS ORDERED: DOCU-275 PO (14:54)
[2020-01-10] MEDS ORDERED: PANT40TA25 PO (14:54)
[2020-01-10] MEDS ORDERED: HYDR-4061 PO (14:55)
[2020-01-10 15:42] VITALS: BP 131/74
== END 2020-01-10 18:15 | DRG 870 ==
LOC: EMS 22:33 → 5S 23:30 → 5N 23:31 → ICU 01-02 19:00 → 5S 01-08 19:30
PROVIDERS: ADMIT Internal Medicine; ATTEND Internal Medicine
PROC: 5A1955Z Respiratory Ventilation, Greater than 96 Consecutive Hours (ICD-10-PCS; 2020-01-02)
PROC: 0BH17EZ Insertion of Endotracheal Airway into Trachea, Via Natural or Artificial Opening (ICD-10-PCS; 2020-01-02)
PROC: 05HY33Z Insertion of Infusion Device into Upper Vein, Percutaneous Approach (ICD-10-PCS; principal; 2020-01-07)
PROC: B54NZZA Ultrasonography of Left Upper Extremity Veins, Guidance (ICD-10-PCS; 2020-01-07)
DX: A41.9 Sepsis, unspecified organism (principal); R65.21 Severe sepsis with septic shock; G92 Toxic encephalopathy; J96.02 Acute respiratory failure with hypercapnia; E43 Unspecified severe protein-calorie malnutrition; J18.9 Pneumonia, unspecified organism; M62.82 Rhabdomyolysis; Z68.1 Body mass index [BMI] 19.9 or less, adult; J44.1 Chronic obstructive pulmonary disease with (acute) exacerbation; J44.0 Chronic obstructive pulmonary disease with (acute) lower respiratory infection; E87.3 Alkalosis; R34 Anuria and oliguria; F17.200 Nicotine dependence, unspecified, uncomplicated; F15.10 Other stimulant abuse, uncomplicated; R68.0 Hypothermia, not associated with low environmental temperature; I10 Essential (primary) hypertension; K21.9 Gastro-esophageal reflux disease without esophagitis; E87.6 Hypokalemia; E83.42 Hypomagnesemia; E16.2 Hypoglycemia, unspecified; F10.10 Alcohol abuse, uncomplicated; Y90.9 Presence of alcohol in blood, level not specified; Z20.828 Contact with and (suspected) exposure to other viral communicable diseases
CPT/HCPCS: 36245; 36569; 36600; 51702; 70450; 76770; 76937; 82533; 82570; 82805; 83605; 83735; 84100; 84132; 84156; 84300; 84443; 87040; 87070; 87081; 87205; 87635; 92526; 92610; 93005; 93306; 94002; 94003; 96374; 97116; 97162; 97166; 97530; 97535; G0378; G0480; J0456; J0696; J1265; J1940; J2060; J2310; J2543; J2704; J3370; J3411; J3475; J3480; J3490; J7030; J7042; J7050; J7060; J7131